=== PATIENT | male | born 1970 | race Caucasian/White ===

== ENCOUNTER 2018-10-04 08:45 | Emergency (ER) | payer SELFPAY ==
[2018-10-04 08:53] VITALS: BP 159/116; PULSE 84; RESP 18; TEMP 36.8; O2SAT 100
--- NOTE | 2018-10-04 09:11 | DI.CT_ITS ---
SYMPTOM/DIAGNOSIS: LOWER COLICKY ABD PAIN, DIARRHEA ABDOMEN AND PELVIC CT: The study was carried out according to the usual protocol with an intravenous injection of 100 cc's of Omnipaque 350. There is no evidence of an acute abnormality involving the lung bases, however there are findings which would be consistent with COPD. There is fatty infiltration of the liver. No focal abnormality is seen. The gallbladder is decompressed. There is no evidence of gross gallbladder wall thickening or pericholecystic fluid. The pancreas is unremarkable. There is no evidence of ductal dilatation. There is no evidence of biliary calculi. The spleen is unremarkable. The kidneys are unremarkable save for small cortical cysts. The adrenals are normal. There is gastric wall thickening likely on the basis of non distension. The duodenum contains fluid and there are mildly dilated proximal small bowel segments which also contain fluid. In the level of the hepatic flexure, there is what appears to represent most likely an intussusception with diffuse swelling and fluid within the dilated bowel at the level of the intussusception. Also there are small droplets of gas in the colonic wall in this region. There is no evidence of free air in the intraperitoneal space, there is however a small fluid collection in the right gutter. The bowel distal to the hepatic flexure appears decompressed and there is no gross localized bowel wall abnormality. There is in this patient, nothing to suggest an acute appendix. There is no evidence of diverticulosis or diverticulitis. The bladder is normal. The reproductive organs as visualized are unremarkable. There is no evidence of an inguinal or umbilical or cathy-umbilical hernia. There are atherosclerotic changes involving the aorta without evidence of an aneurysm. No acute bony abnormality is apparent. There is nothing to suggest a focal bony abnormality and no regions of osteolysis, osteosclerosis or bony expansion are demonstrated. SUMMARY: The examination reveals a grossly abnormal bowel segment in the region of the hepatic flexure. The finding most likely represents an intussusception. The distal bowel is the intussusceptum and the proximal segment is the intussuscipiens. There is gross fluid within this segment and there is moderate dilatation and obstruction of the bowel proximal to this hepatic bowel abnormality which most likely represents intussusception. Small droplets of gas in this fluid filled segment are noted and may simply represent gas within the bowel, however at least one region is suspicious for gas within the colonic wall itself. The findings raise the possibility of bowel infarction. As noted above, there is no evidence of a free intraperitoneal perforation. These findings were discussed with the referring physician immediately following completion of the study.
--- NOTE | 2018-10-04 09:15 | W.ED.GENAD ---
Discharge Plan Disposition Patient Disposition: [facility] Condition: Improving Discharge Details Chief Complaint: Abd Prob Clinical Impression: Bowel obstruction Primary Care Provider: Braden Guaman ED Provider: Gus Whitney Home Meds and New Rx's Prescriptions: No Action lisinopril 20 mg Tablet 20 mg PO DAILY RF: 0 Medical Decision Making 47-year-old male presents with lower abdominal pain that is colicky in nature, transverse, associated with cramping and diarrhea. He is afebrile, moderately hypertensive, states he does drink approximately 6 alcoholic beverages each day. No other current medical problems. He lives in [facility]. IV placed, labs obtained, patient given fluid bolus and analgesic. Patient is elevated white blood cell count at 13, conference of panel notable for mild elevation of his LFTs, unremarkable lipase. Lactic acid pending. CT scan reveals abnormal bowel wall edema at the right hepatic flexure. Question obstruction and microperforation. Given the patient's mild peritonitis, case and CT discussed and reviewed with on-call Surgery, Dr Kessler. Given CT appearance DDX also would include intussuception and therefore images uploaded to [facility]. Case was discussed with Dr Cabrales by Dr Kessler and patient accepted in transfer. Antibiotics administered in the ED. Lab Data Lab results reviewed: Yes I reviewed the patient's lab results. Laboratory Results - last 24 hr 10/04/18 10/04/18 09:00 09:00 WBC 13.36 H RBC 5.24 Hgb 16.7 Hct 50.0 MCV 95.4 H MCH 31.9 MCHC 33.4 RDW 14.0 Plt Count 314 MPV 10.8 Immature Gran % 0.2 Neutrophils % 86.8 Lymphocytes % 8.2 Monocytes % 4.6 Eosinophils % 0.1 Basophils % 0.1 Absolute Neutrophils 11.60 H Absolute Lymphocytes 1.10 L Absolute Monocytes 0.61 Absolute Eosinophils 0.01 Absolute Basophils 0.01 Sodium 134 L Potassium 4.1 Chloride 94 L Carbon Dioxide 29.7 Anion Gap 10.3 BUN 12 Creatinine 0.76 Estimated GFR/1.73 m2 >= 60.00 Glucose 154 H Calcium 11.2 H Magnesium 2.3 Total Bilirubin 0.7 Conjugated Bilirubin 0.12 AST 48 H ALT 81 H Alkaline Phosphatase 115 Total Protein 9.0 H Albumin 4.2 Lipase 224 HPI General Mode of arrival: ambulatory. Date/Time Provider Initiated Documentation: 10/04/18 09:04. Limitations to Documentation: no limitations. Information obtained by: patient. HPI Narrative: 39-year-old male states he is a daily drinker of alcohol, he is here visiting his parents in [place]. He presents the emergency department with hours of transverse lower abdominal colicky, severe, nonradiating pain that comes in waves and associated with watery diarrhea. Related Data Home Medications Medication Instructions Recorded Confirmed lisinopril 20 mg PO DAILY 10/04/18 10/04/18 Allergies Allergy/AdvReac Type Severity Reaction Status Date / Time bee venom protein (honey bee) Allergy Unverified 10/04/18 08:59 General Stated Complaint: Abd Prob CHANI: 3 Review of Systems Review of Systems 6 systems reviewed and otherwise - [facility] Medical History Rib fractures (Acute) Multiple trauma to chest (Acute) Hypertension (Chronic) Loose stools (Acute) Leukocytosis (leucocytosis) (Acute) Colonic edema (Acute) Abdominal pain (Acute) Alcohol abuse (Chronic) Surgical History H/O eye surgery (Acute) History of surgery on arm (Acute) Social History adopted: No caregiver/support person: Yes foster care: No household members: children housing: house lives independently: Yes current occupational status: employed current occupation: construction caffeine: Yes Smoking/Tobacco Use Status: Current every day alcohol intake: current counseling given: Yes counseling provided: provider counseling Exam Narrative Exam Narrative: GEN: awake, alert, oriented 3. Pleasant, well groomed, interactive. HEAD: Normocephalic, atraumatic ENT: Mucous membranes moist, oropharynx unremarkable, External ear exam unremarkable EYES: PERRL, EOMI NECK: Full ROM, no GENE, no menigismus CHEST/RESP: Nontender, clear to auscultation bilateral, no wheeze/rhonchi/rales CARDIOVASCULAR: RRR, no murmur, rub sami. 2+ Rad pulse bilateral ABDOMEN: Soft, tender to palpation in the mid lower abdomen with mild positive mild rebound; no mass. +Bowel sounds EXT: Full ROM, no edema, no rash Neuro: Grossly normal neurologic exam, conversant, interactive. Psych: Speech fluent, thoughts congruent, affect normal Course Vital Signs Temperature 36.8 C 10/04/18 08:53 Pulse 84 10/04/18 08:53 Respiratory Rate 18 10/04/18 08:53 Blood Pressure 159/116 H 12/27/18 08:53 Pulse Oximetry 100 10/04/18 08:53 Temperature 36.8 C 10/04/18 08:53 Temperature Source Temporal Artery Scan 10/04/18 08:53 Pulse 84 10/04/18 08:53 Respiratory Rate 18 10/04/18 08:53 Respiratory Effort Non-Labored 10/04/18 08:53 Blood Pressure 159/116 H 10/04/18 08:53 Blood Pressure Position Sitting 10/04/18 08:53 Pulse Oximetry 100 10/04/18 08:53 Oxygen Delivery Method Room Air 10/04/18 08:53 Oxygen Flow Rate 0 10/04/18 08:53 Pain Level 10 10/04/18 08:53
[2018-10-04] MEDS: Lactated Ringers 1,000 ML 1000 ML IV (09:17)
[2018-10-04] MEDS: HYDROmorphone 2 MG/ML VIAL 1 MG IVP ×2 (09:17→11:09)
[2018-10-04] MEDS: Normal Saline Flush 10 ML SYR IVP (09:17)
--- NOTE | 2018-10-04 09:19 | ED.GENADUL_ITS ---
Discharge Plan Disposition Patient Disposition: [facility] Condition: Improving Discharge Details Chief Complaint: Abd Prob Clinical Impression: Bowel obstruction Primary Care Provider: Braden Guaman ED Provider: Gus Whitney Home Meds and New Rx's Prescriptions: No Action lisinopril 20 mg Tablet 20 mg PO DAILY RF: 0 Medical Decision Making 47-year-old male presents with lower abdominal pain that is colicky in nature, transverse, associated with cramping and diarrhea. He is afebrile, moderately hypertensive, states he does drink approximately 6 alcoholic beverages each day. No other current medical problems. He lives in [facility]. IV placed, labs obtained, patient given fluid bolus and analgesic. Patient is elevated white blood cell count at 13, conference of panel notable for mild elevation of his LFTs, unremarkable lipase. Lactic acid pending. CT scan reveals abnormal bowel wall edema at the right hepatic flexure. Question obstruction and microperforation. Given the patient's mild peritonitis, case and CT discussed and reviewed with on-call Surgery, Dr Kessler. Given CT appearance DDX also would include intussuception and therefore images uploaded to [facility] [place] [place]. Case was discussed with Dr Cabrales by Dr Kessler and patient accepted in transfer. Antibiotics administered in the ED. Lab Data Lab results reviewed: Yes I reviewed the patient's lab results. Laboratory Results - last 24 hr 10/04/18 10/04/18 09:00 09:00 WBC 13.36 H RBC 5.24 Hgb 16.7 Hct 50.0 MCV 95.4 H MCH 31.9 MCHC 33.4 RDW 14.0 Plt Count 314 MPV 10.8 Immature Gran % 0.2 Neutrophils % 86.8 Lymphocytes % 8.2 Monocytes % 4.6 Eosinophils % 0.1 Basophils % 0.1 Absolute Neutrophils 11.60 H Absolute Lymphocytes 1.10 L Absolute Monocytes 0.61 Absolute Eosinophils 0.01 Absolute Basophils 0.01 Sodium 134 L Potassium 4.1 Chloride 94 L Carbon Dioxide 29.7 Anion Gap 10.3 BUN 12 Creatinine 0.76 Estimated GFR/1.73 m2 >= 60.00 Glucose 154 H Calcium 11.2 H Magnesium 2.3 Total Bilirubin 0.7 Conjugated Bilirubin 0.12 AST 48 H ALT 81 H Alkaline Phosphatase 115 Total Protein 9.0 H Albumin 4.2 Lipase 224 HPI General Mode of arrival: ambulatory . Date/Time Provider Initiated Documentation: 10/04/18 09:04 . Limitations to Documentation: no limitations . Information obtained by: patient . HPI Narrative: 39-year-old male states he is a daily drinker of alcohol, he is here visiting his parents in [place]. He presents the emergency department with hours of transverse lower abdominal colicky, severe, nonradiating pain that comes in waves and associated with watery diarrhea. Related Data Home Medications Medication Instructions Recorded Confirmed lisinopril 20 mg PO DAILY 10/04/18 10/04/18 Allergies Allergy/AdvReac Type Severity Reaction Status Date / Time bee venom protein (honey bee) Allergy Unverified 10/04/18 08:59 General Stated Complaint: Abd Prob CHANI: 3 Review of Systems Review of Systems 6 systems reviewed and otherwise - [facility] Medical History Rib fractures (Acute) Multiple trauma to chest (Acute) Hypertension (Chronic) Loose stools (Acute) Leukocytosis (leucocytosis) (Acute) Colonic edema (Acute) Abdominal pain (Acute) Alcohol abuse (Chronic) Surgical History H/O eye surgery (Acute) History of surgery on arm (Acute) Social History adopted: No caregiver/support person: Yes foster care: No household members: children housing: house lives independently: Yes current occupational status: employed current occupation: construction caffeine: Yes Smoking/Tobacco Use Status: Current every day alcohol intake: current counseling given: Yes counseling provided: provider counseling Exam Narrative Exam Narrative: GEN: awake, alert, oriented 3. Pleasant, well groomed, interactive. HEAD: Normocephalic, atraumatic ENT: Mucous membranes moist, oropharynx unremarkable, External ear exam unremarkable EYES: PERRL, EOMI NECK: Full ROM, no GENE, no menigismus CHEST/RESP: Nontender, clear to auscultation bilateral, no wheeze/rhonchi/rales CARDIOVASCULAR: RRR, no murmur, rub sami. 2+ Rad pulse bilateral ABDOMEN: Soft, tender to palpation in the mid lower abdomen with mild positive mild rebound; no mass. +Bowel sounds EXT: Full ROM, no edema, no rash Neuro: Grossly normal neurologic exam, conversant, interactive. Psych: Speech fluent, thoughts congruent, affect normal Course Vital Signs Temperature 36.8 C 10/04/18 08:53 Pulse 84 10/04/18 08:53 Respiratory Rate 18 10/04/18 08:53 Blood Pressure 159/116 H 12/27/18 08:53 Pulse Oximetry 100 10/04/18 08:53 Temperature 36.8 C 10/04/18 08:53 Temperature Source Temporal Artery Scan 10/04/18 08:53 Pulse 84 10/04/18 08:53 Respiratory Rate 18 10/04/18 08:53 Respiratory Effort Non-Labored 10/04/18 08:53 Blood Pressure 159/116 H 10/04/18 08:53 Blood Pressure Position Sitting 10/04/18 08:53 Pulse Oximetry 100 10/04/18 08:53 Oxygen Delivery Method Room Air 10/04/18 08:53 Oxygen Flow Rate 0 10/04/18 08:53 Pain Level 10 10/04/18 08:53
[2018-10-04 09:26] LABS: Abs Immature Grans 0.03 k/cumm (0.0-0.09); Absolute Basophil Count 0.01 k/cumm (0.0-0.2); Basophils % 0.1; Eosinophils % 0.1; HGB 16.7 g/dL (13.5-17.5); Immature Grans % 0.2; Lymphocytes % 8.2; Mean Corp. HGB Concentration 33.4 g/dL (32.0-36.0); Mean Corpuscular Hemoglobin 31.9 pg (27.0-33.0); Mean Corpuscular Volume 95.4 fL (80-95); Mean Platelet Volume 10.8 fL (8.0-11.0); Monocytes % 4.6; Neutrophils % 86.8; Platelet Count 314 x1000/uL (130-400); RBC 5.24 m/cumm (4.50-6.00); White Blood Cell Count 13.36 k/cumm (4.4-10.8)
[2018-10-04 09:31] VITALS: BP 176/121; PULSE 80
[2018-10-04 09:33] LABS: Absolute Eosinophil Count 0.01 k/cumm (0.0-0.7); Absolute Monocyte Count 0.61 k/cumm (0.11-0.7)
--- NOTE | 2018-10-04 09:41 | NUR.NOTE ---
patient medicated per MD order Nursing Note:
[2018-10-04 09:43] LABS: ALT 81 U/L (12-78); AST 48 U/L (15-37); Albumin 4.2 g/dL (3.4-5.0); Alkaline Phosphatase 115 U/L (46-116); Anion Gap 10.3 mmol/L (3-11); BUN 12 mg/dL (7-18); Bilirubin, Direct 0.12 mg/dL (0.00-0.20); Bilirubin, Total 0.7 mg/dL (0.2-1.0); CO2 29.7 mmol/L (21.0-32.0); CREATININE 0.76 mg/dL (0.70-1.30); Calcium 11.2 mg/dL (8.5-10.1); Chloride 94 mmol/L (98-107); Glucose 154 mg/dL (70-100); Lipase 224 U/L (73-393); Magnesium 2.3 mg/dL (1.8-2.4); Potassium 4.1 mmol/L (3.5-5.1); Sodium 134 mmol/L (136-145)
[2018-10-04] MEDS: Omnipaque 350 MG/ML 100 ML BTL IJ (10:05)
--- NOTE | 2018-10-04 10:17 | NUR.NOTE ---
patient to CT Nursing Note:
[2018-10-04 10:35] VITALS: BP 159/100; PULSE 74; RESP 18; TEMP 36.6; O2SAT 100
--- NOTE | 2018-10-04 10:35 | NUR.NOTE ---
patient returned from CT, pain 04/17 Nursing Note:
[2018-10-04 10:48] LABS: Lactate-non-spesis 0.7 mmol/L (0.6-1.4)
[2018-10-04] MEDS: Lactated Ringers 1,000 ML 150 ML IV (11:12)
--- NOTE | 2018-10-04 11:13 | NUR.NOTE ---
patient medicated per MD order Nursing Note:
--- NOTE | 2018-10-04 11:23 | NUR.NOTE ---
patient medicated per MD order Nursing Note:
--- NOTE | 2018-10-04 11:50 | NUR.NOTE ---
patient voided urine sample Nursing Note:
--- NOTE | 2018-10-04 11:50 | NUR.NOTE ---
surgeon into examine patient Nursing Note:
[2018-10-04 11:53] VITALS: BP 142/82; PULSE 84; RESP 16; TEMP 36.6; O2SAT 100
--- NOTE | 2018-10-04 12:13 | W.SURGCON ---
Date of service: 10/04/18 Time of Service: 12:13 Assessment and Plan (1) Loose stools: Start date: 10/04/18 Start time: 12:28 Current visit: No Status: Acute secondary to his colonic pathology (2) Hypertension: Start date: 10/04/18 Start time: 12:28 Current visit: No Status: Chronic treated with meds in the ed (3) Leukocytosis (leucocytosis): Start date: 10/04/18 Start time: 12:28 Current visit: No Status: Acute will give rock and flagyl (4) Colonic edema: Start date: 10/04/18 Start time: 12:29 Current visit: No Status: Acute poss dx of colitis, diverticulitis, gs ileus, intussecption, ?colon CA poss or based on ct and abd exam case dw surgeon at [facility] concerned his condition exceeds this institution and Dr Cabrales agrees will transfer ACS calculator done (5) Abdominal pain: Start date: 10/04/18 Start time: 12:30 Current visit: No Status: Acute colonic pathology poss or serial exams antibiotics (6) Alcohol abuse: Start date: 10/04/18 Start time: 12:36 Current visit: No Status: Chronic serial exam CIWA+ History of Present Illness Chief Complaint: abdominal pain RUQ after some coffee and diet coke this am Narrative: patient woke had some minimal pain and preceded to have some coffee and a diet coke the pain worsened and he came to the ED Mom states and pt agrees he is an alcoholic when questioned he does not go through withdrawals because he just keeps drinking, also an active smoker pt has been having runny BM and no weight loss states he has gained weight Review of Systems Review of Systems All systems reviewed & are unremarkable except as noted in HPI and below Constitutional Reports as per HPI Gastrointestinal Reports as per HPI, Reports abdominal pain, Reports change in bowel habits, Reports cramping and Reports loose stools [facility] Medical History Rib fractures (Acute) Multiple trauma to chest (Acute) Hypertension (Chronic) Loose stools (Acute) Leukocytosis (leucocytosis) (Acute) Colonic edema (Acute) Abdominal pain (Acute) Alcohol abuse (Chronic) Surgical History H/O eye surgery (Acute) History of surgery on arm (Acute) Social History adopted: No caregiver/support person: Yes foster care: No household members: children housing: house lives independently: Yes current occupational status: employed current occupation: construction caffeine: Yes Smoking/Tobacco Use Status: Current every day alcohol intake: current counseling given: Yes counseling provided: provider counseling Exam Narrative Exam Narrative: 47 yo male sitting up in bed will lay down upon request no evidence of peritonitis Const General: cooperative Nutritional Appearance: well nourished Orientation: alert, awake and oriented x3 GI Inspection: normal to inspection Palpation: guarding Percussion: normal to percussion Abdomen image: 1. pain Results Last Vital Signs Temp 36.6 C 10/04/18 11:53 Pulse 84 10/04/18 11:53 Resp 16 10/04/18 11:53 BP 142/82 H 10/04/18 11:53 Pulse Ox 100 10/04/18 11:53 Labs : 10/04/18 09:00 10/04/18 09:00 Laboratory Results - last 24 hr 10/04/18 10/04/18 10/04/18 09:00 09:00 10:45 WBC 13.36 H RBC 5.24 Hgb 16.7 Hct 50.0 MCV 95.4 H MCH 31.9 MCHC 33.4 RDW 14.0 Plt Count 314 MPV 10.8 Immature Gran % 0.2 Neutrophils % 86.8 Lymphocytes % 8.2 Monocytes % 4.6 Eosinophils % 0.1 Basophils % 0.1 Absolute Neutrophils 11.60 H Absolute Lymphocytes 1.10 L Absolute Monocytes 0.61 Absolute Eosinophils 0.01 Absolute Basophils 0.01 Sodium 134 L Potassium 4.1 Chloride 94 L Carbon Dioxide 29.7 Anion Gap 10.3 BUN 12 Creatinine 0.76 Estimated GFR/1.73 m2 >= 60.00 Glucose 154 H Lactate 0.7 Calcium 11.2 H Magnesium 2.3 Total Bilirubin 0.7 Conjugated Bilirubin 0.12 AST 48 H ALT 81 H Alkaline Phosphatase 115 Total Protein 9.0 H Albumin 4.2 Lipase 224
[2018-10-04] MEDS: MetroNIDAZOLE 500 MG/100 ML BAG 100 MG IVPB (12:39)
[2018-10-04] MEDS: PIPERACILLIN/TAZO 3.375 GM in Normal Saline 100 ML IVPB (12:44)
--- NOTE | 2018-10-04 13:21 | NUR.NOTE ---
patient report given to Dai [facility] ED Nursing Note:
--- NOTE | 2018-10-04 15:05 | PDOC.ERCMPRO ---
Care Management Progress Note MADHURI met with Josse and his mother, Megan Bhatia (P#[phone]) to discuss current insurance concerns at patient request. Josse had been accepted at tertiary center and was pending transfer. He shared that he was in [place] visiting his mother and resides in [facility]. His phone number is [phone]. He is currently unemployed and believes his Medicaid has been re-instated. He reports having a daughter who resides with him. His reports his SS# is [id number]. MADHURI called [facility] and discussed case with Kayleigh Oro who reported she would request one of her constituents would run Josse's information in the database for an insurance coverage determination and follow up with this poem writer. MADHURI agreed to notify either Josse or his mother of determination.
--- NOTE | 2018-10-04 15:35 | CMPROGNOTE_ITS ---
Care Management Progress Note MADHURI met with Josse and his mother, Megan Bhatia (P#[phone]) to discuss current insurance concerns at patient request. Josse had been accepted at tertiary center and was pending transfer. He shared that he was in [place] visiting his mother and resides in [facility]. His phone number is [phone]. He is currently unemployed and believes his Medicaid has been re-instated. He reports having a daughter who resides with him. His reports his SS# is [id number]. MADHURI called [facility] and discussed case with Kayleigh Oro who reported she would request one of her constituents would run Josse's information in the database for an insurance coverage determination and follow up with this chief writer. MADHURI agreed to notify either Josse or his mother of determination.
== END 2018-10-04 13:18 | disposition short-term general hospital (02) ==
LOC: ER 12:55
PROVIDERS: Emergency Provider Emergency Medicine; PCP Internal Medicine
DX: R10.30 Lower abdominal pain, unspecified (principal); R19.7 Diarrhea, unspecified; R93.3 Abnormal findings on diagnostic imaging of other parts of digestive tract; I10 Essential (primary) hypertension
CPT/HCPCS: 36415; 80053; 80076; 83690; 96361; 96365; 96368; 96375; 99253; 99283; 99285; 74177; 83605; 83735; 85025; J2543; J3490